=== PATIENT | male | born 2000 | race Two or more races ===

== ENCOUNTER 2019-05-09 19:17 | Emergency (ER) | payer SELFPAY ==
[~2019-05-09] VITALS: Ht 182.9 cm; Wt 81.8 kg
[~2019-05-09 19:17] MED LIST: BACI1PAC4 TP; CLON2TAB9 PO; LEVE500T6 PO
[2019-05-09 19:35] VITALS: BP 128/59
--- NOTE | 2019-05-09 20:04 | PHYS DOC ---
Past Medical History Past Medical History: No Pertinent History Past Surgical History: No Surgical History Alcohol Use: None Adult General Chief Complaint Chief Complaint: FLU SYMPTOM HPI HPI Patient is a 18 year old Male who presents with 2 days of fever at home, intermittent vomiting, sore throat and headache. He also has a insect bite on his right lateral knee that is been draining purulent fluid. States is been there for a couple of days. Review of Systems Review of Systems Constitutional: fever or chills [] HENT: nasal congestion or sore throat [] Respiratory: cough or denies shortness of breath [] GI: Decreased apetite. Denies abdominal pain. +nausea, +vomiting, denies bloody stools or diarrhea [] Neurologic: headache, denies focal weakness or sensory changes [] All other systems were reviewed and found to be within normal limits, except as documented in this note. Allergies Allergies Allergies Coded Allergies Type Severity Reaction Last Updated Verified No Known Drug Allergies 05/09/19 No Physical Exam Physical Exam Constitutional: Well developed, well nourished, no acute distress, non-toxic appearance. [] HENT: Normocephalic, atraumatic, bilateral external ears normal, oropharynx moist, no oral exudates, nose normal. [] Eyes: PERRLA, EOMI, conjunctiva normal, no discharge. [] Neck: Normal range of motion, no tenderness, supple, no stridor. [] Cardiovascular:Heart rate regular rhythm, no murmur [] Lungs & Thorax: Bilateral breath sounds clear to auscultation [] Abdomen: Bowel sounds normal, soft, no tenderness, no masses, no pulsatile masses. [] Skin: Right lateral knee abscess open. Warm, dry, no erythema, no rash. [] Back: No tenderness, no CVA tenderness. [] Extremities: No tenderness, no cyanosis, no clubbing, ROM intact, no edema. [] Neurologic: Alert and oriented X 3, normal motor function, normal sensory function, no focal deficits noted. [] Psychologic: Affect normal, judgement normal, mood normal. [] Current Patient Data Vital Signs Vital Signs Date Time Temp Pulse Resp B/P (MAP) Pulse Ox O2 Delivery O2 Flow Rate FiO2 05/09/19 19:35 99.7 75 18 128/59 (82) 99 Room Air 99.7 Lab Values Laboratory Tests Test 05/09/19 20:05 Influenza Type A Antigen Negative (NEGATIVE) Influenza Type B Antigen Positive (NEGATIVE) EKG EKG [] Radiology/Procedures Radiology/Procedures [] Course & Med Decision Making Course & Med Decision Making Right lateral knee has a quarter-sized raised nontender abscess that is open. No associated cellulitis. It does not affect the knee joint and he has full range of motion of the knee no knee pain. No red streaking. Throat is reddened but there is no swelling or exudates. Lungs are clear to auscultation. Alert and oriented. Speaks in full clear sentences. BiLateral Tympanic are white. Skin pink warm and dry. Mucous members are moist. Patient states he is eating and drinking appropriately because have a decrease in appetite. States he does have a nonproductive cough and nasal drainage. Patient states he took naproxen 3 hours prior to arrival and his sutures 99.7 in the emergency room. The rest of vital signs are normal. Abdomen soft and nontender. Influenza B positive. Dragon Disclaimer Dragon Disclaimer This electronic medical record was generated, in whole or in part, using a voice recognition dictation system. Departure Departure Impression: Primary Impression: Influenza B Disposition: HOME, SELF-CARE Condition: STABLE Patient Instructions: Influenza, Adult Additional Instructions: Follow-up with a primary care provider if needed. Drink plenty of fluids. Take Tylenol or ibuprofen to help with ear pain or fever. Take medication with food and as prescribed. Scripts Oseltamivir Phosphate (TAMIFLU) 75 Mg Capsule 1 CAP PO BID, #10 CAP Prov: YAMEL BUTTS APRN 05/09/19 YAMEL BUTTS APRN May 09, 2019 20:04
[2019-05-09 20:33] LABS: INFLUENZA A PATIENT NEGATIVE (NEGATIVE)
[2019-05-09 20:35] LABS: INFLUENZA B PATIENT POSITIVE (NEGATIVE)
[2019-05-09] MEDS ORDERED: OSEL75CA PO (20:48)
== END 2019-05-09 20:55 | disposition home or self-care (01) ==
LOC: MERGE 19:17 → ER 19:17
DX: J10.1 Influenza due to other identified influenza virus with other respiratory manifestations (principal); L02.415 Cutaneous abscess of right lower limb; R11.2 Nausea with vomiting, unspecified; R51 Headache
CPT/HCPCS: 87804; 99284